=== PATIENT | female | born 1935 | race Caucasian/White ===

== ENCOUNTER 2018-01-09 06:26 | Day surgery (SDC) | END 2018-01-09 13:20 | disposition home or self-care (01) ==

== ENCOUNTER 2018-01-14 01:46 | Inpatient (IN) | END 2018-01-21 14:35 | disposition home or self-care (01) | DRG 981 ==

== ENCOUNTER 2018-01-27 00:51 | Inpatient (IN) | END 2018-02-09 15:50 | DRG 438 ==

== ENCOUNTER 2018-02-19 05:51 | Inpatient (IN) | END 2018-02-28 19:34 | DRG 813 ==